=== PATIENT | male | born 2000 | race Caucasian/White ===

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

== ENCOUNTER 2019-11-13 18:26 | Emergency (ER) | payer SELFPAY ==
[~2019-11-13] VITALS: Ht 170.2 cm; Wt 64.9 kg
[2019-11-13 18:31] VITALS: Ht 170.2 cm; Wt 64.9 kg
[2019-11-13 19:45] VITALS: BP 108/72
== END 2019-11-13 19:45 | disposition home or self-care (01) ==
LOC: ED 18:26
DX: S52.502A Unspecified fracture of the lower end of left radius, initial encounter for closed fracture (principal); W18.30XA Fall on same level, unspecified, initial encounter; Y93.23 Activity, snow (alpine) (downhill) skiing, snowboarding, sledding, tobogganing and snow tubing; Y92.89 Other specified places as the place of occurrence of the external cause; Y99.8 Other external cause status